=== PATIENT | male | born 1985 | race American Indian/Alaskan Native ===

== ENCOUNTER 2018-11-09 18:39 | Emergency (ER) | payer SELFPAY ==
[2018-11-09] MEDS ORDERED: NACL 0.9% 1000 ML 1,000 ML IV ONE (18:50)
[2018-11-09] MEDS ORDERED: ZOFRAN ODT PO ONE (18:50)
[2018-11-09] MEDS ORDERED: CATAPRES PO ONE (18:55)
[2018-11-09] MEDS ORDERED: CATAPRES ONE (18:57)
[2018-11-09 19:25] LABS: Basophils % (Auto) 0.4 % (0.0-1.8); Eosinophils % (Auto) 0.6 % (0.0-4.3); Hematocrit 42.2 % (35.5-45.6); Lymphocytes # (Auto) 1.6 K/mm3 (1.2-5.4); Lymphocytes % (Auto) 18.3 % (13.4-35.0); Mean Corpuscular HGB Conc 33 % (32-34); Mean Corpuscular Volume 90 fl (84-94); Monocytes # (Auto) 0.4 K/mm3 (0.0-0.8); Monocytes % (Auto) 4.9 % (0.0-7.3); Platelet Count 153 K/mm3 (140-440); Red Cell Distribution Width 14.1 % (13.2-15.2)
[2018-11-09 19:40] LABS: Alanine Aminotransferase 20 units/L (7-56); Albumin 4.4 g/dL (3.9-5); BUN/Creatinine Ratio 7; Blood Urea Nitrogen 8 mg/dL (9-20); Calcium 9.4 mg/dL (8.4-10.2); Hemolysis Index 9
--- NOTE | 2018-11-09 21:45 | Emergency Department Report ---
ED General Adult HPI - General Chief complaint: Nausea/Vomiting/Diarrhea Stated complaint: NAUSEA/VOMIT Source: patient Mode of arrival: Stretcher Limitations: No Limitations - History of Present Illness Initial comments: 32-year-old -[place] male comes in complaining and nausea vomiting that started today. Also states he has 2 boils 1 in his left leg and tailbone. Juan suarez reports he has a history of bowls. Patient comes in with a blood pressure 218/122 in triage. Patient denies any history of hypertension. Patient does not currently have a primary care provider. -: week(s) (3 or boils), This evening (nausea and vomiting) Severity scale (0 -10): 7 Quality: burning, aching Worsens with: movement Associated Symptoms: nausea/vomiting (resolve after having Zofran) - Related Data Previous Rx's Medication Instructions Recorded Last Taken Type Sulfamethoxazole/Trimethoprim 1 each PO BID #20 tablet 11/09/18 Unknown Rx [Bactrim DS TAB] amLODIPine [Norvasc] 5 mg PO DAILY #30 tab 11/09/18 Unknown Rx cephALEXin [Keflex] 500 mg PO Q12HR #20 capsule 11/09/18 Unknown Rx hydroCHLOROthiazide [Hctz] 12.5 mg PO QDAY #30 capsule 11/09/18 Unknown Rx traMADol [Ultram 50 MG tab] 50 mg PO Q6HR PRN #12 tablet 11/09/18 Unknown Rx Allergies Allergy/AdvReac Type Severity Reaction Status Date / Time No Known Allergies Allergy Unverified 11/09/18 18:49 ED Review of Systems ROS: Stated complaint: NAUSEA/VOMIT Other details as noted in HPI Comment: All other systems reviewed and negative Constitutional: denies: chills, fever Gastrointestinal: nausea, vomiting Skin: lesions (left groin and tailbone) ED Past Medical Hx - Past Medical History Previous Medical History?: No - Surgical History Past Surgical History?: No - Social History Smoking Status: Current Every Day Smoker Substance Use Type: None - Medications Home Medications: Home Medications Medication Instructions Recorded Confirmed Last Taken Type Sulfamethoxazole/Trimethoprim 1 each PO BID #20 tablet 11/09/18 Unknown Rx [Bactrim DS TAB] amLODIPine [Norvasc] 5 mg PO DAILY #30 tab 11/09/18 Unknown Rx cephALEXin [Keflex] 500 mg PO Q12HR #20 capsule 11/09/18 Unknown Rx hydroCHLOROthiazide [Hctz] 12.5 mg PO QDAY #30 capsule 11/09/18 Unknown Rx traMADol [Ultram 50 MG tab] 50 mg PO Q6HR PRN #12 tablet 11/09/18 Unknown Rx ED Physical Exam - General Limitations: No Limitations General appearance: alert, in no apparent distress - Head Head exam: Present: atraumatic, normocephalic - Eye Eye exam: Present: EOMI - ENT ENT exam: Present: mucous membranes moist - Respiratory Respiratory exam: Present: normal lung sounds bilaterally. Absent: respiratory distress - Cardiovascular Cardiovascular Exam: Present: regular rate, normal rhythm. Absent: systolic murmur, diastolic murmur, rubs, gallop - Neurological Exam Neurological exam: Present: alert, oriented X3 - Expanded Skin Exam Expanded Type of lesion: Present: abscess (left groin and tailbone) Description of rash: Present: tenderness, erythematous, indurated ED Course Vital Signs 11/09/18 11/09/18 18:46 19:38 Temperature 98.2 F Pulse Rate 84 70 Respiratory 18 20 Rate Blood Pressure 218/122 195/96 O2 Sat by Pulse 100 100 Oximetry ED Medical Decision Making - Lab Data Result diagrams: 11/09/18 19:08 11/09/18 19:08 Laboratory Tests 11/09/18 11/09/18 19:08 19:08 WBC 8.5 RBC 4.70 Hgb 14.0 Hct 42.2 MCV 90 MCH 30 MCHC 33 RDW 14.1 Plt Count 153 Lymph % (Auto) 18.3 [place] % (Auto) 4.9 Eos % (Auto) 0.6 Baso % (Auto) 0.4 Lymph # 1.6 [place] # 0.4 Eos # 0.0 Baso # 0.0 Seg Neutrophils % 75.8 H Seg Neutrophils # 6.4 Sodium 140 Potassium 3.9 Chloride 101.6 Carbon Dioxide 25 Anion Gap 17 BUN 8 L Creatinine 1.1 Estimated GFR > 60 BUN/Creatinine Ratio 7 Glucose 96 Calcium 9.4 Total Bilirubin 0.60 AST 25 ALT 20 Alkaline Phosphatase 94 Total Protein 7.6 Albumin 4.4 Albumin/Globulin Ratio 1.4 Critical care attestation.: If time is entered above; I have spent that time in minutes in the direct care of this critically ill patient, excluding procedure time. ED Disposition Clinical Impression: Prestonil of groin, Boil of buttock, HTN, goal below 140/80 Nausea & vomiting Qualifiers: Vomiting type: unspecified Vomiting Intractability: intractable Qualified Code(s): R11.2 - Nausea with vomiting, unspecified Disposition: DC- TO HOME OR SELFCARE Is pt being admited?: No Does the pt Need Aspirin: No Condition: Stable Instructions: Hypertension (ED), Furunculosis and Carbunculosis (ED), Abscess (ED) Additional Instructions: Please complete antibiotics as prescribed. Take blood pressure medication as prescribed. Very importantly to follow up with a primary care provider I have listed information below. Prescriptions: amLODIPine [Norvasc] 5 mg PO DAILY #30 tab cephALEXin [Keflex] 500 mg PO Q12HR #20 capsule hydroCHLOROthiazide [Hctz] 12.5 mg PO QDAY #30 capsule Sulfamethoxazole/Trimethoprim [Bactrim DS TAB] 1 each PO BID #20 tablet traMADol [Ultram 50 MG tab] 50 mg PO Q6HR PRN #12 tablet PRN Reason: Pain Referrals: LA MAHER DO [Primary Care Provider] - 3-5 Days [facility] [Provider Group] - 3-5 Days MANJULA PEMBERTON MD [Staff Physician] - 3-5 Days Forms: Work/School Release Form(ED)
[2018-11-09] MEDS ORDERED: PERCOCET 5/325 PO ONE (21:46)
[2018-11-09] MEDS ORDERED: BACTRIM DS PO ONE (21:47)
[2018-11-09] MEDS ORDERED: KEFLEX PO ONE (21:47)
[2018-11-09 22:58] VITALS: BP 176/82
== END 2018-11-09 22:58 | disposition home or self-care (01) ==
LOC: ED 18:39
DX: R11.2 Nausea with vomiting, unspecified (principal); L02.224 Furuncle of groin; L02.32 Furuncle of buttock; I10 Essential (primary) hypertension; F17.200 Nicotine dependence, unspecified, uncomplicated
CPT/HCPCS: 36415; 80053; 85025; 93005; 93010; Q0162